=== PATIENT | male | born 1960 | race African-American/Black ===

== ENCOUNTER 2021-11-03 12:12 | Emergency (ER) | payer SELFPAY ==
[2021-11-03 12:38] VITALS: BP 209/125; PULSE 96; RESP 18; TEMP 36.7; O2SAT 96; BMI 26.9
--- NOTE | 2021-11-03 12:41 | ECG_ITS ---
Test Reason : HYPERTENTION Blood Pressure : / mmHG Vent. Rate : 086 BPM Atrial Rate : 086 BPM P-R Int : 198 ms QRS Dur : 098 ms QT Int : 398 ms P-R-T Axes : 025 -03 019 degrees QTc Int : 476 ms Sinus rhythm with marked sinus arrhythmia Otherwise normal ECG No previous ECGs available Referred By: Generic ED Physician Electronically Signed By:RAFIQ LARSEN
--- NOTE | 2021-11-03 12:45 | ED.GENADULT ---
HPI - General Adult General Chief complaint: General Medical Stated complaint: high bp Time Seen by Provider: 11/03/21 12:45 Source: patient Mode of arrival: ambulatory Limitations: no limitations History of Present Illness HPI narrative: Patient history of hypertension noncompliant with medications for last few months used to be on hydralazine and amlodipine went for physical exam today of noticed to have high blood pressure of 209/125 patient denies any other symptoms no headache no chest pain or palpitation no shortness of breath Related Data Previous Rx's Medication Instructions Recorded amlodipine 10 mg tablet (Norvasc) 10 mg PO DAILY #90 tabs 11/03/21 hydralazine 50 mg tablet 50 mg PO TID #270 tabs 11/03/21 Allergies Allergy/AdvReac Type Severity Reaction Status Date / Time lisinopril Allergy Intermediate Swelling Verified 11/03/21 12:37 Review of Systems Review of Systems: Yes all other systems are reviewed and are negative [facility] Social History Social History Alcohol intake: current Alcohol intake frequency: 0-2 drinks per day Alcohol type: beer and hard liquor Smoked in Last 30 Days: No Use of substances other than those prescribed or required for medical reasons: No Advance Directives: No Advance Directives Information Provided: No Physical Exam ED Vital Signs: Vital Signs - 24 hr 11/03/21 12:38 11/03/21 13:22 11/03/21 13:29 Temperature 98.0 F Pulse Rate 96 91 77 Respiratory Rate 18 20 Blood Pressure 209/125 H 196/116 H 155/93 H Pulse Oximetry 96 Oxygen Delivery Method Room Air 11/03/21 14:29 Temperature Pulse Rate 68 Respiratory Rate 13 Blood Pressure 167/92 H Pulse Oximetry 96 Oxygen Delivery Method Room Air BMI result Body Mass Index 26.9 Appearance: Alert. Oriented X3. No acute distress. Eyes: No pallor ENT: Pharynx normal. Oral Mucosa moist Neck: Normal inspection. Neck supple. CVS: Normal heart rate and rhythm. Pulses normal. Respiratory: No respiratory distress. Equal air entry bilateral, no wheezing/rales/rhonchi Abdomen: Soft and nontender. Bowel sounds are present, no mass palpable, no CVA tenderness Skin: Skin warm and dry. Normal skin color. Normal skin turgor. Extremities: No lower extremity edema. No calf tenderness Neuro: Oriented X 3. No motor deficit. Medical Decision Making MDM Narrative Medical decision making narrative: Patient with hypertension with CKD with creatinine of 1.46 and GFR of 49 blood pressure improved after labetalol Norvasc discharge patient home on 3 months prescription for hydralazine and Norvasc Lab Data Result diagrams: 11/03/21 13:27 11/03/21 13:27 Labs: Lab Results 11/03/21 11/03/21 11/03/21 Range/Units 13:27 13:27 13:27 WBC 5.2 (4.8-10.8) X10*3/uL RBC 3.74 L (4.60-5.80) X10*6/uL Hgb 12.3 L (14.0-18.0) g/dl Hct 36.3 L (42.0-52.0) % MCV 97.1 (80.0-98.0) fL MCH 32.9 (27.0-33.0) pg MCHC 33.9 (31.0-36.0) g/dl RDW 13.3 (11.0-16.0) % Plt Count 207 (160-400) X10*3/uL MPV 9.5 (9.4-12.4) fL Immature Gran % (Auto) 0.4 (0.0-0.4) % Neut % (Auto) 56.2 (45-73) % Lymph % (Auto) 31.3 (20-40) % [place] % (Auto) 11.5 H (2-11) % Eos % (Auto) 0.4 (0-4) % Baso % (Auto) 0.2 (0-2) % Lymph # (Auto) 1.6 (1.2-4.9) X10*3/uL [place] # (Auto) 0.6 (0.1-1.2) X10*3/uL Eos # (Auto) 0.0 (0.0-0.4) X10*3/uL Baso # (Auto) 0.0 (0.0-0.2) X10*3/uL Abs Immat Gran (auto) 0.02 (0.00-0.03) X10*3/uL Absolute Neuts (auto) 3.0 (2.0-8.3) x10*3/uL Absolute Nucleated RBC 0.000 (0.0-0.012) X10*3/uL Nucleated RBC % (auto) 0.0 (0.0-0.2) /100WBC Sodium 139 (135-145) mmol/L Potassium 3.2 L (3.3-5.1) mmol/L Chloride 101 (96-108) mmol/L Carbon Dioxide 20 L (22-29) mmol/L Anion Gap 21 H (12-20) BUN 21 H (9-16) mg/dL Creatinine 1.46 H (0.5-1.4) mg/dL Estim Creat Clear Calc 53.1 Estimated GFR 49 Random Glucose 73 (60-115) mg/dL Calcium 9.0 (8.4-10.2) mg/dL Troponin I High Sens 14.4 (<3.5-35.0) ng/L ECG Data Attestation: I personally reviewed and interpreted this ECG as follows: Interpretation: No sinus rhythm heart rate 86 beats per minute normal intervals normal axis no acute ST-T changes no ischemia Discharge Plan Discharge Clinical Impression: Hypertension Patient Disposition: Home, Self-Care Instructions: Chronic Hypertension (ED) Additional Instructions: Check blood pressure daily before you take the medicine and before going to bed Blood pressure should be less than 135/85 Take blood pressure medication daily Drink plenty of fluids Follow up with PCP Prescriptions: New hydralazine 50 mg tablet 50 mg PO TID Qty: 270 3RF amlodipine [Norvasc] 10 mg tablet 10 mg PO DAILY Qty: 90 3RF Stand Alone Forms: Work/School Release Discharge Date/Time: 11/03/21 15:10
[2021-11-03 13:22] VITALS: BP 196/116; PULSE 91; RESP 20
[2021-11-03 13:29] VITALS: BP 155/93; PULSE 77
[2021-11-03 13:32] LABS: MANUAL DIFF FLAG NO
[2021-11-03 13:34] LABS: Basophils Percent Auto 0.2 % (0-2); Eosinophils Percent Auto 0.4 % (0-4); Hematocrit 36.3 % (42.0-52.0); Hemoglobin 12.3 g/dl (14.0-18.0); Imm Gran Abs Auto 0.02 X10*3/uL (0.00-0.03); Imm Gran Pct Auto 0.4 % (0.0-0.4); Lymphocytes Absolute Auto 1.6 X10*3/uL (1.2-4.9); Lymphocytes Percent Auto 31.3 % (20-40); Mean Corpuscular HGB Conc 33.9 g/dl (31.0-36.0); Mean Corpuscular Hemoglobin 32.9 pg (27.0-33.0); Mean Corpuscular Volume 97.1 fL (80.0-98.0); Mean Platelet Volume 9.5 fL (9.4-12.4); Monocytes Absolute Auto 0.6 X10*3/uL (0.1-1.2); Monocytes Percent Auto 11.5 % (2-11); Neutrophils Percent Auto 56.2 % (45-73); Platelet Count 207 X10*3/uL (160-400); Red Blood Count 3.74 X10*6/uL (4.60-5.80); Red Cell Distribution Width 13.3 % (11.0-16.0); White Blood Count 5.2 X10*3/uL (4.8-10.8)
[2021-11-03 13:55] LABS: Anion Gap 21 (12-20); Blood Urea Nitrogen 21 mg/dL (9-16); Carbon Dioxide 20 mmol/L (22-29); Chloride 101 mmol/L (96-108); Creatinine Clr Calc Pharmacy 53.1; Estimated Glomerular Filt Rate 49; Glucose Random 73 mg/dL (60-115); Potassium 3.2 mmol/L (3.3-5.1); Sodium 139 mmol/L (135-145)
[2021-11-03 14:00] LABS: Troponin-I High Sensitivity 14.4 ng/L (<3.5-35.0)
[2021-11-03 14:29] VITALS: BP 167/92; PULSE 68; RESP 13; O2SAT 96
[2021-11-03] MEDS: amLODIPine Besylate 10 MG TABLET PO (15:06)
== END 2021-11-03 15:10 | disposition home or self-care (01) ==
PROVIDERS: Emergency Provider Internal Medicine
DX: I10 Essential (primary) hypertension (principal); Z91.14 Patient's other noncompliance with medication regimen
CPT/HCPCS: 36415; 80048; 84484; 85025; 93005; 96374; 99284

== ENCOUNTER 2022-03-29 10:51 | Emergency (ER) | payer SELFPAY ==
--- NOTE | ~2022-03-29 | CT_ITS ---
EXAMINATION: CT HEAD WITHOUT CONTRAST CLINICAL INFORMATION: Headache and hypertension. COMPARISON: No relevant prior imaging. TECHNIQUE: Contiguous axial imaging was performed from the skull base to vertex without intravenous administration of contrast. This CT examination was performed using dose optimization techniques as appropriate, variously including the following: *Automated exposure control *Adjustment of mA and/or kV according to patient size (this includes techniques or standardized protocols for targeted exams where dose is matched to indication/reason for exam; i.e. extremities or head) *Use of iterative reconstruction technique DLP: 680 mGy-cm FINDINGS: There is no acute intracranial hemorrhage or abnormal extra-axial collection. No intracranial mass effect or midline shift. Lateral and third ventricles are normal. Cardona-white matter differentiation is grossly preserved and there is no evidence of acute territorial infarct. The calvarium and skull base are intact. Mastoid air cells and middle ear cavities are well-aerated. No active paranasal sinus disease. CT/CT head/brain wo IV con IMPRESSION: Unremarkable CT scan of the head. No evidence of acute territorial infarct or hemorrhage.
--- NOTE | ~2022-03-29 | XR_ITS ---
EXAMINATION: XR CHEST CLINICAL INFORMATION: Fever COMPARISON: None TECHNIQUE: Portable upright AP view of the chest was obtained. FINDINGS: The lungs are clear. There is no airspace consolidation or groundglass opacity or effusion. Heart is within normal size. The vascularity is normal. The costophrenic sulci are clear. There is a levocurvature lower thoracic spine. XR/XR chest 1V IMPRESSION: Unremarkable examination.
[2022-03-29 10:58] VITALS: BP 166/98; PULSE 98; RESP 18; TEMP 36.4; O2SAT 99; BMI 26.6
--- NOTE | 2022-03-29 11:00 | ECG_ITS ---
Test Reason : ETOH WITHDRAWL ,TACHY Blood Pressure : / mmHG Vent. Rate : 082 BPM Atrial Rate : 082 BPM P-R Int : 190 ms QRS Dur : 134 ms QT Int : 396 ms P-R-T Axes : 028 -01 055 degrees QTc Int : 462 ms Poor data quality Normal sinus rhythm Otherwise normal ECG When compared with ECG of 03-NOV-2021 12:42, No significant change was found Referred By: Generic ED Physician Electronically Signed By:Derick Jackson
[2022-03-29 12:18] VITALS: BP 168/91; PULSE 84; RESP 20; TEMP 37; O2SAT 100
[2022-03-29 12:38] LABS: Basophils Percent Auto 0.2 % (0-2); Eosinophils Percent Auto 0.2 % (0-4); Hematocrit 32.2 % (42.0-52.0); Hemoglobin 11.3 g/dl (14.0-18.0); Imm Gran Abs Auto 0.03 X10*3/uL (0.00-0.03); Imm Gran Pct Auto 0.5 % (0.0-0.4); Lymphocytes Absolute Auto 1.1 X10*3/uL (1.2-4.9); Lymphocytes Percent Auto 18.7 % (20-40); MANUAL DIFF FLAG NO; Mean Corpuscular HGB Conc 35.1 g/dl (31.0-36.0); Mean Corpuscular Hemoglobin 33.6 pg (27.0-33.0); Mean Corpuscular Volume 95.8 fL (80.0-98.0); Mean Platelet Volume 9.5 fL (9.4-12.4); Monocytes Absolute Auto 0.4 X10*3/uL (0.1-1.2); Monocytes Percent Auto 7.1 % (2-11); NRBC Pct Auto 0.4 /100WBC (0.0-0.2); Neutrophils Absolute Auto 4.1 x10*3/uL (2.0-8.3); Neutrophils Percent Auto 73.3 % (45-73); Platelet Count 202 X10*3/uL (160-400); Red Blood Count 3.36 X10*6/uL (4.60-5.80); Red Cell Distribution Width 13.5 % (11.0-16.0); White Blood Count 5.6 X10*3/uL (4.8-10.8)
[2022-03-29 13:05] LABS: Alanine Aminotransferase 138 U/L (0-40); Alkaline Phosphatase 244 U/L (39-117); Aspartate Amino Transferase 235 U/L (5-37); Blood Urea Nitrogen 21 mg/dL (9-16); Calcium 8.9 mg/dL (8.4-10.2); Creatinine Clr Calc Pharmacy 59.8; Estimated Glomerular Filt Rate 57; Ethanol 23 mg/dL; Glucose Random 53 mg/dL (60-115); Total Protein 8.2 g/dL (6.5-8.0)
[2022-03-29 13:14] LABS: Anion Gap 29 (12-20); Carbon Dioxide 17 mmol/L (22-29); Chloride 94 mmol/L (96-108); Potassium 3.4 mmol/L (3.3-5.1); Sodium 137 mmol/L (135-145)
--- NOTE | 2022-03-29 13:18 | ED_ITS ---
HPI - General Adult General Chief complaint: ETOH/Substance Use Stated complaint: Sever headache/Nausea/Dizziness Time Seen by Provider: 03/29/22 13:05 Source: patient Mode of arrival: ambulatory Limitations: no limitations History of Present Illness HPI narrative: Patient comes to the emergency room reporting that he does not feel well for last couple of days. Patient admits that he drinks alcohol heavily. Yesterday, at nighttime, patient drank vodka and then started complaining of nausea. Patient states he has been vomiting, no diarrhea. Patient states that he has diffuse body aches and significant headache. Patient denies falls Related Data Previous Rx's Medication Instructions Recorded amlodipine 10 mg tablet (Norvasc) 10 mg PO DAILY #90 tabs 11/03/21 hydralazine 50 mg tablet 50 mg PO TID #270 tabs 11/03/21 Allergies Allergy/AdvReac Type Severity Reaction Status Date / Time lisinopril Allergy Intermediate Swelling Verified 11/03/21 12:37 Review of Systems Review of Systems: Constitutional : No Weight loss, No Fever, complaining of Chills, No Night Sweats, laying of fatigue, generalized malaise ENT/Mouth : No Hearing loss, No Ear Pain, No Nasal Congestion, No Sinus Pain, No Hoarseness, No sore throat, No Rhinorrhea, No Swallowing Difficulty Eyes: No Eye Pain, No Swelling, No Redness, No Foreign Body, No Discharge, No Vision Changes Cardiovascular : No Chest Pain, No SOB, No Dyspnea on Exertion, No Orthopnea, No Edema, No Palpitations Respiratory : No Cough, No Sputum, No Wheezing, No Smoke Exposure, No Dyspnea Gastrointestinal : No Nausea, No Vomiting, No Diarrhea, No Constipation, No abdominal Pain, No Hematochezia, No Melena Genitourinary : no irregular bleeding, No Dysuria, No Urinary Frequency, No Hematuria, No Urinary Incontinence, No Urgency, No Flank Pain, No Urinary Flow Changes, No Hesitancy Musculoskeletal : No joint pain, complaining of myalgias Skin : No Skin Lesions, No rash Neuro : No Weakness, No Numbness, No Paresthesias, No Loss of Consciousness, No Dizziness, complaining of Headache Psych : No Anxiety/Panic, No Depression, No SI/HI/AH/VH, No Social Issues, Heme/Lymph: No Bruising, No Bleeding,No Lymphadenopathy Endocrine : No Polyuria, No Polydipsia, No Temperature Intolerance [facility] Past Medical History Medical History Alcohol abuse Social History Social History Alcohol intake: current Alcohol intake frequency: 0-2 drinks per day Alcohol type: beer and hard liquor Smoked in Last 30 Days: Yes Use of substances other than those prescribed or required for medical reasons: No Advance Directives: No Advance Directives Information Provided: Yes Physical Exam ED Vital Signs: Vital Signs - 24 hr 03/29/22 10:58 03/29/22 12:18 03/29/22 14:03 Temperature 97.6 F 98.6 F 99.4 F Pulse Rate 98 84 98 Respiratory Rate 18 20 18 Blood Pressure 166/98 H 168/91 H 144/72 H Pulse Oximetry 99 100 96 Oxygen Delivery Method Room Air Room Air Room Air 03/29/22 16:00 03/29/22 18:00 Temperature 98.6 F 98.5 F Pulse Rate 88 76 Respiratory Rate 18 16 Blood Pressure 132/64 144/89 H Pulse Oximetry 96 99 Oxygen Delivery Method Room Air Room Air BMI result Body Mass Index 26.6 Const Other: Appearance: Alert. Oriented X3. No acute distress. Eyes: Pupils equal, round and reactive to light. Icteric sclera ENT: Pharynx normal. Neck: Normal inspection. Neck supple. No lymph nodes noted. No crepitus CVS: Normal heart rate and rhythm. Pulses normal. Normal S1 and S2 Respiratory: No respiratory distress. Breath sounds normal. No Wheezing. No rales Abdomen: Soft and nontender. No rigidity. No distention. Skin: Skin warm and dry. Normal skin color. Normal skin turgor. Extremities: No lower extremity edema. No Lacerations. No Rash Neuro: Oriented X 3. No motor deficit. No sensory deficit. Moving all extremities. No slurred speech. CN 2 through 12 grossly intact Psych: calm, cooperative, normal affect Course Course Course Narrative: Rectal temperature 100.2 degrees. We received a phone call from above, shwetha padilla's glucose is in the low 50s. Patient breathing Zofran p.o. since he is nauseous and oral glucose Of patient's labs are pending Patient tested negative for COVID, flu shot. Chest x-ray negative, white blood cell count within normal limits. Patient states that he is interested in detox I spoke with our coach builder drawn, patient is at bedside assessing the patient, we will try to find a bed for him Patient likely has a viral syndrome. [facility]. Patient being discharged now. Patient's mom or will be taking him there. Medications Administered Discontinued Medications Generic Name Dose Route Start Last Admin Trade Name Jose PRN Reason Stop Dose Admin Acetaminophen 650 mg 03/29/22 13:17 03/29/22 13:24 Acetaminophen 325 Mg Tablet PO 03/29/22 13:18 650 mg ONCE ONE Administration Glucose 15 gm 03/29/22 13:07 03/29/22 13:24 Glucose Gel 15 Gm Gel..Gram. PO 03/29/22 13:08 15 gm ONCE ONE Administration Lactated Ringer's 1,000 mls @ 999 mls/hr 03/29/22 14:30 03/29/22 15:26 Lr IV 03/29/22 15:30 Infused .Q1H1M GEETHA Infusion Lorazepam 2 mg 03/29/22 13:18 03/29/22 13:24 Lorazepam 1 Mg Tablet PO 03/29/22 13:19 2 mg ONCE ONE Administration Ondansetron HCl 4 mg 03/29/22 13:07 03/29/22 13:24 Ondansetron Odt 4 Mg Tab.Rapdis TRANSLINGU 03/29/22 13:08 4 mg ONCE ONE Administration Medical Decision Making Lab Data Result Diagrams: 03/29/22 12:30 03/29/22 12:30 Labs: Lab Results 03/29/22 03/29/22 03/29/22 Range/Units 12:30 12:30 13:17 WBC 5.6 (4.8-10.8) X10*3/uL RBC 3.36 L (4.60-5.80) X10*6/uL Hgb 11.3 L (14.0-18.0) g/dl Hct 32.2 L (42.0-52.0) % MCV 95.8 (80.0-98.0) fL MCH 33.6 H (27.0-33.0) pg MCHC 35.1 (31.0-36.0) g/dl RDW 13.5 (11.0-16.0) % Plt Count 202 (160-400) X10*3/uL MPV 9.5 (9.4-12.4) fL Immature Gran % (Auto) 0.5 H (0.0-0.4) % Neut % (Auto) 73.3 H (45-73) % Lymph % (Auto) 18.7 L (20-40) % [place] % (Auto) 7.1 (2-11) % Eos % (Auto) 0.2 (0-4) % Baso % (Auto) 0.2 (0-2) % Lymph # (Auto) 1.1 L (1.2-4.9) X10*3/uL [place] # (Auto) 0.4 (0.1-1.2) X10*3/uL Eos # (Auto) 0.0 (0.0-0.4) X10*3/uL Baso # (Auto) 0.0 (0.0-0.2) X10*3/uL Abs Immat Gran (auto) 0.03 (0.00-0.03) X10*3/uL Absolute Neuts (auto) 4.1 (2.0-8.3) x10*3/uL Absolute Nucleated RBC 0.020 H (0.0-0.012) X10*3/uL Nucleated RBC % (auto) 0.4 H (0.0-0.2) /100WBC Sodium 137 (135-145) mmol/L Potassium 3.4 (3.3-5.1) mmol/L Chloride 94 L (96-108) mmol/L Carbon Dioxide 17 L (22-29) mmol/L Anion Gap 29 H (12-20) BUN 21 H (9-16) mg/dL Creatinine 1.28 (0.5-1.4) mg/dL Estim Creat Clear Calc 59.8 Estimated GFR 57 POC Glucose (60-115) mg/dL Random Glucose 53 L* (60-115) mg/dL Lactic Acid 3.6 H* (0.5-2.0) mmol/L Lactic Acid F/U @ 2Hr (0.5-2.0) mmol/L Calcium 8.9 (8.4-10.2) mg/dL Total Bilirubin 1.7 H (0.0-1.0) mg/dL AST 235 H (5-37) U/L ALT 138 H (0-40) U/L Alkaline Phosphatase 244 H (39-117) U/L Total Protein 8.2 H (6.5-8.0) g/dL Albumin 4.0 (3.5-5.0) g/dL Urine Color Urine Appearance Urine pH (5.0-9.0) Ur Specific [place] (1.005-1.025) Urine Protein (Neg-Trace) mg/dL Urine Glucose (UA) (Negative) mg/dL Urine Ketones (Negative) mg/dL Urine Blood (Negative) Urine Nitrite (Negative) Ur Leukocyte Esterase (Negative) Urine RBC (0-2) /HPF Urine WBC (0-5) /HPF Ur Squamous Epith Cells (0-2) /HPF Urine Bacteria (None Seen) Hyaline Casts (0-2) /LPF Ethyl Alcohol 23 mg/dL COVID-19 ([facility]) (Negative) COVID-19 Clin Com Influenza Type A ([facility]) (Negative) Influenza Type B ([facility]) (Negative) Influenza A & B Note 03/29/22 03/29/22 03/29/22 Range/Units 13:35 13:35 14:24 WBC (4.8-10.8) X10*3/uL RBC (4.60-5.80) X10*6/uL Hgb (14.0-18.0) g/dl Hct (42.0-52.0) % MCV (80.0-98.0) fL MCH (27.0-33.0) pg MCHC (31.0-36.0) g/dl RDW (11.0-16.0) % Plt Count (160-400) X10*3/uL MPV (9.4-12.4) fL Immature Gran % (Auto) (0.0-0.4) % Neut % (Auto) (45-73) % Lymph % (Auto) (20-40) % [place] % (Auto) (2-11) % Eos % (Auto) (0-4) % Baso % (Auto) (0-2) % Lymph # (Auto) (1.2-4.9) X10*3/uL [place] # (Auto) (0.1-1.2) X10*3/uL Eos # (Auto) (0.0-0.4) X10*3/uL Baso # (Auto) (0.0-0.2) X10*3/uL Abs Immat Gran (auto) (0.00-0.03) X10*3/uL Absolute Neuts (auto) (2.0-8.3) x10*3/uL Absolute Nucleated RBC (0.0-0.012) X10*3/uL Nucleated RBC % (auto) (0.0-0.2) /100WBC Sodium (135-145) mmol/L Potassium (3.3-5.1) mmol/L Chloride (96-108) mmol/L Carbon Dioxide (22-29) mmol/L Anion Gap (12-20) BUN (9-16) mg/dL Creatinine (0.5-1.4) mg/dL Estim Creat Clear Calc Estimated GFR POC Glucose 77 (60-115) mg/dL Random Glucose (60-115) mg/dL Lactic Acid (0.5-2.0) mmol/L Lactic Acid F/U @ 2Hr (0.5-2.0) mmol/L Calcium (8.4-10.2) mg/dL Total Bilirubin (0.0-1.0) mg/dL AST (5-37) U/L ALT (0-40) U/L Alkaline Phosphatase (39-117) U/L Total Protein (6.5-8.0) g/dL Albumin (3.5-5.0) g/dL Urine Color Urine Appearance Urine pH (5.0-9.0) Ur Specific [place] (1.005-1.025) Urine Protein (Neg-Trace) mg/dL Urine Glucose (UA) (Negative) mg/dL Urine Ketones (Negative) mg/dL Urine Blood (Negative) Urine Nitrite (Negative) Ur Leukocyte Esterase (Negative) Urine RBC (0-2) /HPF Urine WBC (0-5) /HPF Ur Squamous Epith Cells (0-2) /HPF Urine Bacteria (None Seen) Hyaline Casts (0-2) /LPF Ethyl Alcohol mg/dL COVID-19 ([facility]) Negative (Negative) COVID-19 Clin Com See Note Influenza Type A ([facility]) Negative (Negative) Influenza Type B ([facility]) Negative (Negative) Influenza A & B Note See Note 03/29/22 03/29/22 Range/Units 15:15 15:41 WBC (4.8-10.8) X10*3/uL RBC (4.60-5.80) X10*6/uL Hgb (14.0-18.0) g/dl Hct (42.0-52.0) % MCV (80.0-98.0) fL MCH (27.0-33.0) pg MCHC (31.0-36.0) g/dl RDW (11.0-16.0) % Plt Count (160-400) X10*3/uL MPV (9.4-12.4) fL Immature Gran % (Auto) (0.0-0.4) % Neut % (Auto) (45-73) % Lymph % (Auto) (20-40) % [place] % (Auto) (2-11) % Eos % (Auto) (0-4) % Baso % (Auto) (0-2) % Lymph # (Auto) (1.2-4.9) X10*3/uL [place] # (Auto) (0.1-1.2) X10*3/uL Eos # (Auto) (0.0-0.4) X10*3/uL Baso # (Auto) (0.0-0.2) X10*3/uL Abs Immat Gran (auto) (0.00-0.03) X10*3/uL Absolute Neuts (auto) (2.0-8.3) x10*3/uL Absolute Nucleated RBC (0.0-0.012) X10*3/uL Nucleated RBC % (auto) (0.0-0.2) /100WBC Sodium (135-145) mmol/L Potassium (3.3-5.1) mmol/L Chloride (96-108) mmol/L Carbon Dioxide (22-29) mmol/L Anion Gap (12-20) BUN (9-16) mg/dL Creatinine (0.5-1.4) mg/dL Estim Creat Clear Calc Estimated GFR POC Glucose (60-115) mg/dL Random Glucose (60-115) mg/dL Lactic Acid (0.5-2.0) mmol/L Lactic Acid F/U @ 2Hr 1.1 (0.5-2.0) mmol/L Calcium (8.4-10.2) mg/dL Total Bilirubin (0.0-1.0) mg/dL AST (5-37) U/L ALT (0-40) U/L Alkaline Phosphatase (39-117) U/L Total Protein (6.5-8.0) g/dL Albumin (3.5-5.0) g/dL Urine Color Dark Yellow Urine Appearance Clear Urine pH 5.5 (5.0-9.0) Ur Specific [place] 1.015 (1.005-1.025) Urine Protein 100 (2+) H (Neg-Trace) mg/dL Urine Glucose (UA) Negative (Negative) mg/dL Urine Ketones 40 (Negative) mg/dL Urine Blood Negative (Negative) Urine Nitrite Negative (Negative) Ur Leukocyte Esterase Negative (Negative) Urine RBC 0-2 (0-2) /HPF Urine WBC 0-5 (0-5) /HPF Ur Squamous Epith Cells 0-2 (0-2) /HPF Urine Bacteria None Seen (None Seen) Hyaline Casts 0-2 (0-2) /LPF Ethyl Alcohol mg/dL COVID-19 ([facility]) (Negative) COVID-19 Clin Com Influenza Type A ([facility]) (Negative) Influenza Type B ([facility]) (Negative) Influenza A & B Note Discharge Plan Discharge Clinical Impression: Acute viral syndrome, Alcohol dependence Patient Disposition: Home, Self-Care Instructions: Viral Syndrome (ED), Alcohol Dependence (ED) Additional Instructions: You have a bed available in [facility]. Viral syndrome may be treated with Ty lenol or ibuprofen for helping you with the symptoms. Please follow-up with your primary care physician tomorrow. If you have any worsening or new symptoms, please return to the emergency room or call 911 Prescriptions: No Action hydralazine 50 mg tablet 50 mg PO TID Qty: 270 3RF amlodipine [Norvasc] 10 mg tablet 10 mg PO DAILY Qty: 90 3RF Interventions: [place]-Suicide Risk Severity Scale Last Done: 03/29/22 12:53
[2022-03-29 13:23] LABS: Bilirubin Total 1.7 mg/dL (0.0-1.0)
[2022-03-29] MEDS: LORazepam 1 MG TABLET 2 MG PO (13:24)
[2022-03-29] MEDS: Acetaminophen 325 MG TABLET 650 MG PO (13:24)
[2022-03-29] MEDS: Glucose Gel 15 GM GEL..GRAM. PO (13:24)
[2022-03-29] MEDS: Ondansetron ODT 4 MG TAB.RAPDIS TRANSLINGU (13:24)
[2022-03-29 13:51] LABS: Lactic Acid 3.6 mmol/L (0.5-2.0)
[2022-03-29 14:03] VITALS: BP 144/72; PULSE 98; RESP 18; TEMP 37.4; O2SAT 96
[2022-03-29 14:10] LABS: COVID-19 Test Negative (Negative); IDNOW Serial# 9DB6401D; IDNOW Serial# BCCEAD1C; Influenza A Negative (Negative); Influenza B2 Negative (Negative)
[2022-03-29 14:30] LABS: Glucose, Whole Blood 77 mg/dL (60-115)
[2022-03-29] MEDS: Lactated Ringers 1,000 ML 999 ML IV (14:35)
[2022-03-29 15:21] LABS: Reflex Lactate? Lactic Acid Added
[2022-03-29 15:22] LABS: Appearance Urine Clear; Color Urine Dark Yellow; Glucose Urine UA Negative (Negative); Leukocyte Esterase Urine Negative (Negative); Nitrite Urine Negative (Negative); PH 5.5 (5.0-9.0); Specific Gravity - Urine 1.015 (1.005-1.025); UMIC TRIGGER UACC YES; Urine Blood Negative (Negative); Urine Ketones 40 mg/dL (Negative); Urine Protein 100 (2+) mg/dL (Neg-Trace)
[2022-03-29 15:24] LABS: Bacteria Urine None Seen (None Seen); Hyaline Casts Urine 0-2 /LPF (0-2); RBC Urine 0-2 /HPF (0-2); Squamous Epithelial Cell Urine 0-2 /HPF (0-2); WBC Urine 0-5 /HPF (0-5)
[2022-03-29 15:57] LABS: ~Lactic Acid-LAB USE ONLY 1.1 mmol/L (0.5-2.0)
[2022-03-29 16:00] VITALS: BP 132/64; PULSE 88; RESP 18; TEMP 37; O2SAT 96
[2022-03-29 18:00] VITALS: BP 144/89; PULSE 76; RESP 16; TEMP 36.9; O2SAT 99
--- NOTE | 2022-03-29 18:17 | MHC.RECOVSUP ---
? Reason for consult Recovery Support o Current location: ED11 o Identified substance use concern: Alcohol - Withdrawal - Seeking ATS (detox) - Support ? Intervention: o ATS bed search [id number] o Community resources provided o Harm reduction discussion ? Plan: o Patient to follow up with [facility] after discharge ? Additional information: Met with Patient and he wants detox.. Patient currently doing intake for [facility].. Paper work is being fax by care Team
--- NOTE | 2022-03-29 18:25 | MHC.CARE ---
Referral faxed to [facility] for review
== END 2022-03-29 19:29 | disposition home or self-care (01) ==
PROVIDERS: Emergency Provider Emergency Medicine
DX: B34.9 Viral infection, unspecified (principal); F10.20 Alcohol dependence, uncomplicated; Y90.1 Blood alcohol level of 20-39 mg/100 ml; Z20.822 Contact with and (suspected) exposure to COVID-19; Z79.899 Other long term (current) drug therapy
CPT/HCPCS: 36415; 70450; 71045; 80053; 81001; 82077; 82947; 83605; 85025; 87040; 87077; 87205; 87502; 87635; 93005; 96360; 99285